=== PATIENT | male | born 1980 | race Two or more races ===

== ENCOUNTER 2024-08-15 14:16 | Emergency (ER) | payer MEDICAID, OTHER ==
[~2024-08-15] VITALS: Ht 167.6 cm; Wt 80.2 kg
--- NOTE | 2024-08-15 15:39 | ED.PDOC ---
Eye-HPI HPI Comments 43-year-old male with hx of bilateral paratonsillar abscess 2023 (was admitted, on Abx, one abscess ruptured spontaneously in the ED) presents with a chief complaint of sore throat x2 days. Onset was sudden Associated with shortness of breath and trouble swallowing saliva Took [id number] Tylenol with some improvement Denies chest pain shortness of breath Denies inability to move neck, history of meningitis Denies fevers chills night sweats Denies persistent cough, runny nose, congestion Denies loss of appetite, unintentional weight loss over the past 3 months Denies voice changes Denies history of asthma or seasonal allergies Chief Complaint: Sore Throat Time Seen by MD: 14:59 Primary Care Provider: NONE Reviewed Notes: Nurses Notes, Medications, Allergies Allergies: Coded Allergies: NO KNOWN ALLERGIES (Unverified , 08/15/24) Information Source: Patient Mode of Arrival: Ambulatory Family History Family History: Reviewed,noncontributory to illness Social History Smoker: Non-Smoker Alcohol: Denies ETOH Use Drugs: Denies Drug Use All Other Systems: Reviewed and Negative (Per HPI) Physical Exam General Appearance: No Apparent Distress, Normal HEENT: Head (Normocephalic), Normal ENT Inspection, Pharyngeal Erythema (no d rooling, no hot potatoe voice, unvila midline, right tonsil enlarged. airway intact), TMs Normal Neck: Full Range of Motion, Non-Tender, Normal, Normal Inspection Respiratory: Chest Non-Tender, Lungs Clear, No Accessory Muscle Use, No Respiratory Distress, Normal Breath Sounds Cardiovascular: No Edema, No JVD, No Murmur, No Gallop, Normal Peripheral Pulses, Regular Rate/Rhythm Breast Exam: Deferred Gastrointestinal: No Organomegaly, Non Tender, No Pulsatile Mass, Normal Bowel Sounds, Soft Genitalia: Deferred Pelvic: Deferred Rectal: Deferred Extremities: No calf tenderness, Normal capillary refill, Normal inspection, Normal range of motion, Non-tender, No pedal edema Musculoskeletal : Apperance: Normal Neurologic: Alert, No Motor Deficits, Normal Affect, Normal Mood, No Sensory Deficits Cerebellar Function: Normal Reflexes: Normal Skin: Dry, Normal Color, Warm Lymphatic: No Adenopathy Was a procedure done? Was a procedure done?: No EENT DIFF Eye: Other Sore Throat: Adalid's Angina, Peritonsillar Abscess, Pharyngitis X-Ray, Labs, Meds, VS Vital Signs Date Time Temp Pulse Resp B/P (MAP) Pulse Ox O2 Delivery O2 Flow Rate FiO2 08/15/24 15:34 98.6 108 18 130/88 (102) 96 98.6 08/15/24 15:34 108 18 96 Room Air 08/15/24 14:55 98.4 118 18 133/92 (106) 95 Lab Test 08/15/24 16:10 08/15/24 15:53 Range/Units White Blood Count 12.0 H 4.4-10.8 10^3/uL Red Blood Count 4.93 4.5-5.90 10^6/uL Hemoglobin 14.6 13.5-17.5 g/dL Hematocrit 42.9 41.0-53.0 % Mean Corpuscular Volume 87.1 80.0-100.0 fL Mean Corpuscular Hemoglobin 29.5 28.0-32.0 pg Mean Corpuscular Hemoglobin Concent 33.9 32.0-36.0 g/dL Red Cell Distribution Width 14.5 H 11.8-14.3 % Platelet Count 259 140-450 10^3/uL Mean Platelet Volume 8.1 6.9-10.8 fL Neutrophils (%) (Auto) 78.0 37.0-80.0 % Lymphocytes (%) (Auto) 15.4 10.0-50.0 % Monocytes (%) (Auto) 5.8 0.0-12.0 % Eosinophils (%) (Auto) 0.3 0.0-7.0 % Basophils (%) (Auto) 0.5 0.0-2.0 % Neutrophils # (Auto) 9.4 H 1.6-8.6 10 ^3/uL Lymphocytes # (Auto) 1.9 0.4-5.4 10 ^3/uL Monocytes # (Auto) 0.7 0-1.3 10 ^3/uL Eosinophils # (Auto) 0 0-0.8 10 ^3/uL Basophils # (Auto) 0.1 0-0.2 10 ^3/uL Nucleated Red Blood Cells 0.1 % Sodium Level 135 L 136-145 mmol/L Potassium Level 3.9 3.5-5.1 mmol/L Chloride Level 103 98-107 mmol/L Carbon Dioxide Level 24 20-31 mmol/L Anion Gap 8 5-15 Blood Urea Nitrogen 7 L 9-23 mg/dL Creatinine 0.75 0.700-1.30 mg/dL Glomerular Filtration Rate Calc 116 >90 mL/min BUN/Creatinine Ratio 9.3 L 10.0-20.0 Serum Glucose 232 H 74-106 mg/dL Calcium Level 9.5 8.7-10.4 mg/dL Group A Streptococcus Rapid Negative Current Medications Medications (Trade) Dose Ordered Sig/Héctor Route Start Time Stop Time Status Last Admin Ampicillin Sodium/ Sulbactam Sodium 3 gm/Sodium Chloride 100 ml @ 100 mls/hr ONCE ONCE IV 08/15/24 15:35 08/15/24 16:34 DC 08/15/24 17:34 Ketorolac Tromethamine (Toradol Injection) 30 mg ONCE ONCE IV 08/15/24 16:00 08/15/24 16:01 DC 08/15/24 16:08 Methylprednisolone Sodium Succinate (Solu Medrol) 125 mg ONCE ONCE IV 08/15/24 16:00 08/15/24 16:01 DC 08/15/24 16:08 Sodium Chloride 1,000 ml @ 1,000 mls/hr Q1H ONCE IV 08/15/24 18:00 08/15/24 18:59 08/15/24 17:55 PATIENT: PETER PEREZT: [id number]: [id number] : 1980 LOC: ER ROOM / BED: / AGE / SEX: 43 / M ADM STATUS: REG ER SERVICE [id number] ORDERING PHYSICIAN: JACOB BEVERLY NP PROCEDURE(s): NK2CT - NECK WITH CONTRAST SOFT REASON: possible abscess ORDER NUMBER(s): [id number], ACCESSION NUMBER(s): [id number] CT NECK WITH CONTRAST Clinical History: possible abscess Comparison: None Technique: Multiple contiguous CT images of the neck were obtained with intravenous contrast. These images were reformatted degenerate coronal and sagittal reconstructions. 100 cc is omnipaque 300 contrast was injected intravenously. Radiation Dose Information: CT Dose: CTDI volume is 26 mGy. Dose-length product is 731 mGy*cm Findings: There is moderate asymmetric enlargement of the right palatine tonsils with an approximately 1.9 x 2.2 x 2.8 cm hypodense collection with thickened enhancing south likely a tonsillar abscess. A necrotic lesion is not entirely excluded. The glottis appears fairly symmetric. There are several prominent right level 2 lymph nodes measuring 1.2 cm and 1.1 cm in the short axis. These are probably reactionary. There are additional scattered subcentimeter bilateral cervical lymph nodes which are not pathologic by size criteria. The bilateral salivary and thyroid glands appear within normal limits. The visualized intracranial and intraorbital contents appear within normal limits. The lung apices are clear. The osseous structures appear within normal limits. Impression: 1. Moderate asymmetric enlargement of the right palatine tonsils with approximately 1.9 x 2.2 cm hypodense collection with thickened enhancing south likely a tonsillar abscess. A necrotic lesion is not entirely excluded. Surgical consultation is recommended for drainage/resection. 2. Several prominent right level 2 lymph nodes measuring up to 1.2 cm in the short axis. These are probably reactionary lymph nodes. HS:Y ATED BY: JUDSON ENRIQUEZ MD DICTATED DATE/TIME: 08/15/241712 SIGNED BY: JUDSON ENRIQUEZ MD SIGNED DATE/TIME: 08/15/241712 CC: X-Ray, Labs, Meds, VS Comment 43-year-old male with no MHx presents with a chief complaint of sore throat x2 days. On presentation, the patient is afebrile. The patient is overall well appearing, non-toxic on exam. After ROS and physical exam, i have high suspicion for peritonsillar abscess Differentials considered but not limited to peritonsillar abscess, abscess formation, epiglottitis, retropharyngeal abscess formation or airway obstruction. Rapid strep test results NEG Labs and Neck CT w/ IV ordered. Labs reviewed. CT: Moderate asymmetric enlargement of the right palatine tonsils with approximately 1.9 x 2.2 cm hypodense collection with thickened enhancing south likely a tonsillar abscess. A necrotic lesion is not entirely excluded. Surgical consultation is recommended for drainage/resection. Several prominent right level 2 lymph nodes measuring up to 1.2 cm in the short axis. These are probably reactionary lymph nodes. The patient did not have any focal lung findings, and therefore chest x-ray was not indicated during this visit No signs of meningism on exam. In the ED patient received and Unasyn, methylprednisolone and Toradol IV with no adverse reactions. On re-evaluation patient reported significant improvement. On re-evaluation patient declines shortness of breath or trouble swallowing saliva. Hemodynamically stable at this time Plan: Patient requires emergency transfer to ENT and surgical consultation is recommended for drainage and resection. I provided critical care services which included medical orders, frequent re- evaluation of the patient's condition and response to treatment, ordering and reviewing test results and discussing the case with various consultants. A total of 65 minutes of critical time was spent reviewing the patient's record, examining the patient, making diagnostic and therapeutic plan, discussing the plan with the medical personnel, following up on diagnostic studies and following the patient for clinical stability excluding any and all procedures. At least 50% of this time was spent in direct [id number] contact Called [facility] at 18:15 and was declined d/t capacity Signed out at 18:30. Patient was endorsed to Dr. Fernando at 1824 Time of 1ST Reevaluation: 16:45 Reevaluation 1ST: Unchanged Time of 2ND Reevaluation: 17:46 Reevaluation 2ND: Improved Patient Education/Counseling: Diagnosis, Treatment Family Education/Counseling: Diagnosis, Treatment Departure 1 Departure Time of Disposition: 17:56 Impression: Primary Impression: Peritonsillar abscess Disposition: 51 HOSPICE/MEDICAL FACILITY Condition: Serious Critical Care Note Critical Care Time?: No Stability Stability form required: No Heart Score Heart Score: Heart Score Response (Comments) Value History N/A 0 EKG N/A 0 Age N/A 0 Risk Factors N/A 0 Troponin N/A 0 Total 0 JACOB BEVERLY NP Aug 15, 2024 15:39
[2024-08-15] MEDS ORDERED: KETOROLAC TROMETH 30 MG/ML 1ML VIAL IM ONE (15:45)
[2024-08-15] MEDS ORDERED: methylPREDNISolone SOD SUCC 125 MG/2 ML VL IM ONE (15:45)
[2024-08-15] MEDS: methylPREDNISolone SOD SUCC 125 MG/2 ML VL IV ONE (16:08)
[2024-08-15] MEDS: KETOROLAC TROMETH 30 MG/ML 1ML VIAL IV ONE (16:08)
[2024-08-15 16:20] LABS: Basophils # (auto) 0.1 10 ^3/uL (0-0.2); Basophils % (auto) 0.5 % (0.0-2.0); Eosinophils # (auto) 0 10 ^3/uL (0-0.8); Eosinophils % (auto) 0.3 % (0.0-7.0); Hematocrit 42.9 % (41.0-53.0); Hemoglobin 14.6 g/dL (13.5-17.5); Lymphocytes # (auto) 1.9 10 ^3/uL (0.4-5.4); Lymphocytes % (auto) 15.4 % (10.0-50.0); Mean Corpuscular Hemoglobin 29.5 pg (28.0-32.0); Mean Corpuscular Hgb Conc. 33.9 g/dL (32.0-36.0); Mean Corpuscular Volume 87.1 fL (80.0-100.0); Monocytes # (auto) 0.7 10 ^3/uL (0-1.3); Monocytes % (auto) 5.8 % (0.0-12.0); Neutrophils # (auto) 9.4 10 ^3/uL (1.6-8.6); Nucleated Red Blood Cells % 0.1 %; Platelet Count (auto) 259 10^3/uL (140-450); Red Blood Cells 4.93 10^6/uL (4.5-5.90); Red Cell Distribution Width 14.5 % (11.8-14.3)
[2024-08-15 16:23] LABS: Rapid Strep A Screen-Throat Negative
[2024-08-15 16:33] LABS: Chloride 103 mmol/L (98-107); Potassium 3.9 mmol/L (3.5-5.1)
[2024-08-15 16:34] LABS: Anion Gap 8 (5-15); Calcium 9.5 mg/dL (8.7-10.4); Carbon Dioxide 24 mmol/L (20-31)
[2024-08-15 16:39] LABS: BUN/Creatinine Ratio 9.3 (10.0-20.0)
[2024-08-15 16:42] LABS: Blood Urea Nitrogen 7 mg/dL (9-23); Glucose 232 mg/dL (74-106); Sodium 135 mmol/L (136-145)
--- NOTE | 2024-08-15 17:15 | DVH ---
CT NECK WITH CONTRAST Clinical History: possible abscess Comparison: None Technique: Multiple contiguous CT images of the neck were obtained with intravenous contrast. These images were reformatted degenerate coronal and sagittal reconstructions. 100 cc is omnipaque 300 cont rast was injected intravenously. Radiation Dose Information: CT Dose: CTDI volume is 26 mGy. Dose-length product is 731 mGy*cm Findings: There is moderate asymmetric enlargement of the right palatine tonsils with an approximately 1.9 x 2. 2 x 2.8 cm hypodense collection with thickened enhancing south likely a tonsillar abscess. A necrotic lesion is not entirely excluded. The glottis appears fairly symmetric. There are several prominent right level 2 lymph nodes measuring 1.2 cm and 1.1 cm in the short axis. These are probably reactionary. There are additional scattered subcentimeter bilateral cervical lymp h nodes which are not pathologic by size criteria. The bilateral salivary and thyroid glands appear within normal limits. The visualized intracranial and intraorbital contents appear within normal limits. The lung apices ar e clear. The osseous structures appear within normal limits. Impression: 1. Moderate asymmetric enlargement of the right palatine tonsils with approximately 1.9 x 2.2 cm hypo dense collection with thickened enhancing south likely a tonsillar abscess. A necrotic lesion is not entirely excluded. Surgical consultation is recommended for drainage/resection. 2. Several prominent right level 2 lymph nodes measuring up to 1.2 cm in the short axis. These are pr obably reactionary lymph nodes. HS:Y
[2024-08-15] MEDS: AMPICILLIN & SULBACTAM SODIUM 3 GM in SODIUM CHL 0.9% 100 ML IV ONE (17:34)
[2024-08-15] MEDS: SODIUM CHLORIDE 0.9% 1,000 ML IV ONE (17:55)
[2024-08-15 23:10] VITALS: BP 128/80; PULSE 108; RESP 18; TEMP 98.4; O2SAT 96
== END 2024-08-15 23:54 | disposition short-term general hospital (02) ==
LOC: ER 14:16
DX: J36 Peritonsillar abscess (principal)
CPT/HCPCS: 36415; 70491; 80048; 85025; 87070; 87880; 96365; 96375; 99285; J1885; J2919; J7030; Q9967